=== PATIENT | female | born 1965 | race Caucasian/White ===

== ENCOUNTER 2017-05-16 12:44 | Observation (INO) ==
--- NOTE | 2017-05-16 12:58 | Emergency Department Note ---
Disposition Clinical Impression: Left arm weakness, Left leg weakness, Facial paresthesia Disposition: Admitted As Inpatient Condition: Good Referrals: Aldo Guardado MD [Primary Care Provider] - Forms: ED Satisfaction Letter Neuro HPI - General Chief Complaint: ED Neuro Symptoms/Deficit Stated Complaint: neuro sx Time Seen by Provider: 05/16/17 12:52 Source: patient Mode of arrival: private vehicle Limitations: physical limitation Nursing Notes Reviewed: Yes Vital Signs Reviewed: Yes - History of Present Illness HPI Narrative: 51-year-old female history of anxiety, prior history of hemiparesis who presents to the ER with a chief complaint of slurring words, left facial, left upper extremity and left lower extremity paresthesias and weakness. Patient states that "she was in bad shape yesterday". Reports that she had a headache and some palpitations then. She reports upon awakening this morning she noted slurring her words and was weak. She awoke with symptoms. Denies any head injury. Reports a prior history of similar presentation. States that she was seen by a neurologist and thought it might be secondary to her nerves. She does report that she was raising a child who is now going back into the custody of his drug mother. Reports she found out roughly 1 week ago. She has been taking her Ativan and it does help whenever she takes it. No other complaints. Onset of Symptoms Date: 05/16/17 Symptom Onset Unknown: Yes Location: speech, left face, dysarthria, left arm, left leg History of same: Yes Severity: moderate Quality: weakness, numbness Symptoms Improving: No Improves with: none Worsens with: none Context: present upon awakening On Anticoagulants: No Associated symptoms: Reports: headaches. Denies: chest pain, fever/chills, nausea/vomiting Treatments Prior to Arrival: none - Related Data Home Medications: Home Medications Medication Instructions Recorded Confirmed ALPRAZolam [Xanax 1 MG Tablet] 1 mg PO TID PRN 05/16/17 05/16/17 Loratadine [Claritin] 10 mg PO DAILY PRN 05/16/17 05/16/17 Melatonin 10 mg PO HS PRN 05/16/17 05/16/17 Multivitamin [One Daily 1 each PO DAILY 05/16/17 05/16/17 Multivitamin] Thyroid,Pork [Brush Cutter Thyroid] 15 mg PO DAILY 03/06/18 Allergies/Adverse Reactions: Allergies Allergy/AdvReac Type Severity Reaction Status Date / Time morphine Allergy Rash Verified 02/13/17 10:12 Sulfa (Sulfonamide Allergy Abdominal Verified 02/13/17 10:12 Antibiotics) Pain codeine AdvReac Nausea Verified 02/13/17 10:12 Isothipendyl AdvReac Itching Verified 02/13/17 10:12 All systems ED: reviewed and negative except as stated. Constitutional: Denies: fever Cardiovascular: Reports: palpitations. Denies: chest pain Respiratory: Denies: cough, dyspnea Gastrointestinal: Denies: abdominal pain, nausea, vomiting Neurological: Reports: headache, weakness, paresthesias Psychiatric: Reports: anxiety Past Medical History - Past Medical History Attestation: Yes The following information was validated with the patient. Source: patient Medical history: Reports: other Surgical history: Reports: hysterectomy, other Psychiatric history: Reports: anxiety - Social History Smoking Status: Current every day smoker Smokeless Tobacco Status: No Alcohol use: Reports: none Drug use: Reports: none Physical Exam - General Limitations: physical limitation General appearance: alert, in no apparent distress - Head Head exam: atraumatic, normocephalic, normal inspection - Eye Eye exam: Present: normal appearance, PERRL, EOMI - ENT ENT exam: normal exam - Neck Neck exam: Present: normal inspection, full ROM - Chest Chest inspection: Present: normal inspection, symmetric chest wall rise - Respiratory Respiratory exam: Present: normal lung sounds bilaterally - Cardiovascular Cardiovascular exam: Present: regular rate, normal rhythm, normal heart sounds - Abdominal Exam Abdominal exam: Present: soft, Non-Tender. Absent: tenderness - Extremities Exam Extremities exam: Present: normal inspection, full ROM - Expanded Upper Extremity Exam Shoulder exam: Present: normal inspection, full ROM Arm exam: Present: normal inspection, full ROM Elbow exam: Present: normal inspection, full ROM Forearm/Wrist exam: Present: normal inspection, full ROM Hand exam: Present: normal inspection, full ROM Vascular exam: Normal: radial pulse - Expanded Lower Extremity Exam Hip/Pelvis exam: Present: normal inspection, full ROM Upper leg exam: Present: normal inspection, full ROM Knee exam: Present: normal inspection, full ROM Lower leg exam: Present: normal inspection, full ROM Ankle exam: Present: normal inspection, full ROM Foot/toe exam: Present: normal inspection, full ROM - Neurological Exam Neurological exam: Present: alert, oriented X3 - Expanded Neurological Exam Patient oriented to: Present: person, place, time Speech: Present: fluid speech Cranial nerves: EOM function (II, III, IV, ): Normal, facial sensation (V): Normal, facial palsy (VII): Abnormal Left, spinal accessory function (XI): Normal, tongue deviation (XII): Normal Cerebellar function: finger to nose: Normal, heel to torres: Normal Motor strength - LUE: 4/5 Motor strength - RUE: 5/5 Motor strength - LLE: 4/5 Motor strength - RLE: 5/5 Upper motor neuron exam: jose neglect: Absent bilaterally, pronator drift: Absent bilaterally Sensory exam upper extremity: light touch: Abnormal Left Sensory exam lower extremity: light touch: Abnormal Left Coma Scale Eye Opening: Spontaneous Coma Scale Motor Response: Obeys Commands Coma Scale Verbal Response: Oriented Coma Scale Total: 15 - Skin Skin exam: Present: warm, dry Course Course Narrative: Patient seen and examined. I reviewed her prior evaluations with presentations of hemiparesis. Evaluated inpatient in 2016 with neurology consultation with brain MRI without acute infarct with evidence of questionable demyelination versus postinflammatory changes. Does report recent stress in her life. Suspect likely conversion disorder. She has weakness of the left upper extremity and left lower extremity as well as paresthesias over the affected extremities. We will pursue a CT scan of her head, EKG, labs as well as a dose of Ativan here. - Reevaluation(s) Reevaluation #1: Patient requiring multiple IV sticks. She continues to complain of numbness in her left upper and lower extremities. Her other symptoms do not follow a neurologic distribution. Reevaluation #2: Discussed results of imaging and labs with the patient. Reports her symptoms have improved some and now she just feeling numb from her elbow and knee distal. We will have her ambulate here prior to attempting to discharge if she is comfortable with this. Reevaluation #3: Patient ambulated here dragging her left leg. She will have to be admitted for evaluation. Vital Signs Temperature 97.8 F 05/16/17 12:47 Pulse Rate 83 05/16/17 12:47 Respiratory Rate 20 05/16/17 12:47 Blood Pressure 156/100 05/16/17 12:47 O2 Sat by Pulse Oximetry 97 05/16/17 12:47 Temperature 97.8 F 05/16/17 12:47 Pulse Rate 75 05/16/17 15:37 Respiratory Rate 18 05/16/17 15:37 Blood Pressure 146/81 05/16/17 15:37 O2 Sat by Pulse Oximetry 96 05/16/17 15:37 Oxygen Delivery Oxygen Delivery Room Air Neuro Symptoms/Deficit - MDM Narrative Medical decision making narrative: 51-year-old female presents to the awoke with symptoms this morning. She has a prior history of hemiparesis of unknown etiology. Has been under increased stress lately. No head injury. Reports a prior history of stroke however her previous MRI showed no infarct. There is questionable demyelination on her prior MRI. She has weakness of the left upper and lower extremity as well as paresthesias. CT without evidence of acute abnormality. Labs and EKG reviewed. Patient ambulated here without difficulty while dragging her left leg. Although suspected conversion disorder or acute anxiety she requires further evaluation inpatient for neurologic monitoring. - Lab Data Lab results reviewed: Yes I reviewed the patient's lab results. Result diagrams: 05/16/17 14:31 05/16/17 14:31 Lab Results 05/16/17 05/16/17 05/16/17 Range/Units 12:48 14:31 14:31 WBC 10.4 (4.3-11.1) K/mcL RBC 5.13 H (3.82-4.97) M/mcL Hgb 14.5 (11.5-15.4) g/dL Hct 43.8 (35.3-44.9) % MCV 85.4 (83.0-100.0) fL MCH 28.3 (28.0-33.3) pg MCHC 33.1 (31.6-35.5) g/dL RDW 13.2 (11.5-14.5) % Plt Count 331 (140-400) K/mcL MPV 10.0 (9.4-12.4) fL Immature Gran % 0.8 (0-4) % Seg Neutrophils % 51.0 % Lymphocytes % 40.0 % Monocytes % 6.3 % Eosinophils % 0.8 % Basophils % 1.1 % Neutrophils # 5.3 (1.6-8.9) K/mcL Lymphocytes # 4.2 (0.6-4.6) K/mcL Monocytes # 0.7 (0.0-1.3) K/mcL Eosinophils # 0.1 (0.0-0.6) K/mcL Basophils # 0.1 (0.0-0.2) K/mcL Sodium Cancelled Potassium Cancelled Chloride Cancelled Carbon Dioxide Cancelled BUN Cancelled Creatinine Cancelled Est GFR ( Amer) Cancelled Est GFR (Non-Af Amer) Cancelled BUN/Creatinine Ratio Cancelled Glucose Cancelled POC Glucose 124 H (58-89) Calculated Osmolality Cancelled Calcium Cancelled Troponin I < 0.03 (< 0.04) ng/mL Urine Color (Yellow) Urine Clarity (Clear) Urine pH (5.0-8.0) pH Units Ur Specific [place] (1.010-1.025) Urine Protein (Neg-Trace) mg/dL Urine Glucose (UA) (Normal) mg/dL Urine Ketones (Negative) mg/dL Urine Blood (Negative) Urine Nitrite (Negative) Urine Bilirubin (Negative) Urine Urobilinogen (Normal) mg/dL Ur Leukocyte Esterase (Negative) Urine Microscopic RBC (0-3) per hpf Urine Microscopic WBC (0-3) per hpf Ur Squamous Epith Cells (None-Few) per lpf Urine Bacteria (None-Few) per hpf Hyaline Casts (None-Few) per lpf Ur Culture Indicated? (NO) Specimen Rejected 05/16/17 05/16/17 Range/Units 15:13 15:29 WBC (4.3-11.1) K/mcL RBC (3.82-4.97) M/mcL Hgb (11.5-15.4) g/dL Hct (35.3-44.9) % MCV (83.0-100.0) fL MCH (28.0-33.3) pg MCHC (31.6-35.5) g/dL RDW (11.5-14.5) % Plt Count (140-400) K/mcL MPV (9.4-12.4) fL Immature Gran % (0-4) % Seg Neutrophils % % Lymphocytes % % Monocytes % % Eosinophils % % Basophils % % Neutrophils # (1.6-8.9) K/mcL Lymphocytes # (0.6-4.6) K/mcL Monocytes # (0.0-1.3) K/mcL Eosinophils # (0.0-0.6) K/mcL Basophils # (0.0-0.2) K/mcL Sodium Potassium Chloride Carbon Dioxide BUN Creatinine Est GFR ( Amer) Est GFR (Non-Af Amer) BUN/Creatinine Ratio Glucose POC Glucose (58-89) Calculated Osmolality Calcium Troponin I (< 0.04) ng/mL Urine Color Yellow (Yellow) Urine Clarity Clear (Clear) Urine pH 6.0 (5.0-8.0) pH Units Ur Specific [place] 1.013 (1.010-1.025) Urine Protein Negative (Neg-Trace) mg/dL Urine Glucose (UA) Normal (Normal) mg/dL Urine Ketones Negative (Negative) mg/dL Urine Blood Negative (Negative) Urine Nitrite Negative (Negative) Urine Bilirubin Negative (Negative) Urine Urobilinogen Normal (Normal) mg/dL Ur Leukocyte Esterase Small H (Negative) Urine Microscopic RBC 3-5 H (0-3) per hpf Urine Microscopic WBC 3-5 H (0-3) per hpf Ur Squamous Epith Cells Many H (None-Few) per lpf Urine Bacteria None Seen (None-Few) per hpf Hyaline Casts None Seen (None-Few) per lpf Ur Culture Indicated? NO. (NO) Specimen Rejected Hemolyzed - Radiology Data Radiology results reviewed: Yes I reviewed the patient's radiology results. Chest X-Ray 05/16/17 13:13 IMPRESSION: No acute process. D/ / 05/16/2017 13:57:02 Marck Gustafson MD / [facility] Interpreting Provider: Marck Gustafson MD Head CT 05/16/17 13:13 IMPRESSION: No acute intracranial abnormality. D/ / Beny Amaro MD / Beny Amaro MD Interpreting Provider: Beny Amaro MD - EKG Data EKG attestation: Yes I reviewed and interpreted this EKG. EKG results narrative: EKG demonstrates sinus bradycardia with a rate of 50 bpm. Normal axis. Normal intervals. Normal R-wave progression. No gross ST elevations or depressions. No acute ischemic findings. No significant changes from previous EKG dated 02/10. NIH Stroke Scale - Level of Consciousness LOC: Alert - LOC Questions LOC Questions: Answers both correctly - LOC Commands LOC Commands: Performs both correctly - Best Gaze Best Gaze: Normal - Visual Visual: Partial hemianopia - Facial Palsy Facial Palsy: Minor asymmetry on smiling, flattened nasolabial fold - Motor Arms Motor Arm-Left: No drift for 10 seconds Motor Arm-Right: No drift for 10 seconds - Motor Legs Motor Leg-Left: No drift for 5 seconds Motor Leg-Right: No drift for 5 seconds - Limb Ataxia Limb Ataxia: Present in ONE limb - Sensory Sensory: Mild to moderate loss, "not as sharp" - Best Language Best Language: No aphasia - Dysarthria Dysarthria: Mild, slurs some words - Extinction and Inattention Extinction and Inattention: Normal - NIHSS Total Score NIHSS Total Score: 5 TPA Checklist - LKW: 3-4.5 hrs Add. Warnings/Precautions Patient/family understanding: The patient/family members have been counseled and understood the risk, benefit , and alternatives of treatment. Ron - Ron Situation: Demographics, MOA Background: Presenting Complaint, Relevant PMH, Meds, & Allergies Assessment: Course and respsone to treatment, Exam Concerns, Patient/Family Expectation, Pertinant Lab Results Recommendation: Barrier(s) to disposition, Recommendation based on pending studies, treatments, or consults S.[email or web address].Francesco Report Given to: Dr. Andie Velasquez Repor Time: 17:47 Attestation Statement - Attestation Attestation: I examined this patient and my medical decision-making was reviewed with the Resident Physician. I agree with the documented findings, disposition and treatment plan as described except to the extent set forth below. [id number] time provided Patient arrives with neurologic symptoms. She went to bed without symptoms other than a headache and intermittent panic attacks throughout the day at 21: 30 yesterday night. She awoke at 7 AM which is 6 hours prior to arrival with neurologic symptoms include left-sided hemiparesis 16:30: Patient symptomatically improved and resolved. Upon presentation her symptoms seemed to be confounded by some anxiety symptoms. I am not completely convinced that her symptoms represent an acute ischemic event. We will attempt a trial of ambulation and if she has no further symptoms we will consider discharging her home
[2017-05-16] MEDS ORDERED: *HR* LORazepam 2 MG/ML VIAL IVP ONE (13:15)
[2017-05-16 14:46] LABS: Basophils # 0.1 K/mcL (0.0-0.2); Basophils % 1.1 %; Eosinophils # 0.1 K/mcL (0.0-0.6); Eosinophils % 0.8 %; Hematocrit 43.8 % (35.3-44.9); Hemoglobin 14.5 g/dL (11.5-15.4); Immature Granulocytes % 0.8 % (0-4); Lymphocytes # 4.2 K/mcL (0.6-4.6); Mean Corpuscular HGB Conc 33.1 g/dL (31.6-35.5); Mean Corpuscular Hemoglobin 28.3 pg (28.0-33.3); Mean Corpuscular Volume 85.4 fL (83.0-100.0); Monocytes # 0.7 K/mcL (0.0-1.3); Monocytes % 6.3 %; Neutrophils # 5.3 K/mcL (1.6-8.9); Platelet Count 331 K/mcL (140-400); Red Blood Count 5.13 M/mcL (3.82-4.97); Red Cell Distribution Width 13.2 % (11.5-14.5)
[2017-05-16] MEDS ORDERED: Aspirin 325 MG TABLET PO ONE (15:00)
[2017-05-16 15:45] LABS: Bilirubin,Urine Negative (Negative); Blood,Urine Negative (Negative); Clarity,Urine Clear (Clear); Color,Urine Yellow (Yellow); Glucose,Urine (UA) Normal (Normal); Ketones,Urine Negative (Negative); Leukocyte Esterase,Urine Small (Negative); Nitrite,Urine Negative (Negative); Protein,Urine Negative (Neg-Trace); Specific Gravity,Urine 1.013 (1.010-1.025); Urobilinogen,Urine Normal (Normal)
[2017-05-16 15:46] LABS: Bacteria,Urine None Seen per hpf (None-Few); Hyaline Casts,Urine None Seen per lpf (None-Few); Squamous Epithelial Cell,Urine Many per lpf (None-Few)
[2017-05-16 17:59] LABS: BUN/Creatinine Ratio 14 (6-26); Blood Urea Nitrogen 10 mg/dL (6-20); Calcium 9.7 mg/dL (8.6-10.3); Carbon Dioxide 15 mEq/L (23-29); Chloride 115 mEq/L (98-107); Glucose 96 mg/dL (70-105); Osmolality,Calculated 297 (280-300); Potassium 4.5 mEq/L (3.5-5.1); Sodium 144 mEq/L (136-145); eGFR For African Americans > 60 (> 60); eGFR For Non-African Americans > 60 (> 60)
[2017-05-16] MEDS ORDERED: Melatonin 3 MG TABLET PO PRN (18:16)
[2017-05-16] MEDS ORDERED: Loratadine 10 MG TABLET PO PRN (18:16)
[2017-05-16] MEDS ORDERED: Acetaminophen 325 MG TABLET PO PRN (18:17)
[2017-05-16] MEDS ORDERED: Naloxone 0.4 MG/ML INJ IVP PRN (18:17)
--- NOTE | 2017-05-16 18:26 | Internal Med History&Physical ---
Date of Encounter: 05/16/17 Time of Encounter: 18:26 Assessment and Plan (1) Acute CVA (cerebrovascular accident) Current visit: Yes Status: Acute Patient with acute onset left upper and lower extremity weakness, mild facial droop. Time of onset was before 7 AM this morning 12 hours ago and therefore she is outside the therapeutic window for tPA. We will admit the patient. Obtain MRA of the head, MRI without contrast of the brain, carotid Dopplers, echocardiogram. Check lipid profile. Consult neurology. Neuro checks per protocol. Nothing by mouth. Speech and swallow evaluation. (2) Tobacco abuse Current visit: Yes Status: Acute I advised smoking cessation. (3) DVT prophylaxis Current visit: Yes Status: Acute Subcutaneous heparin. (4) Left hemiparesis Current visit: No Status: Acute Could be secondary to TIA or CVA. Consult neurology. Obtain MRI of the brain. (5) HTN (hypertension) Current visit: No Status: Chronic Allow for permissive hypertension. Qualifiers: Hypertension type: essential hypertension Qualified Code(s): I10 - Essential (primary) hypertension Internal Medicine - H&P: HPI Chief complaint: Left-sided weakness Admitted From: Emergency Dept Plans for Post Hospital Care: Home History of present illness: Ms. Collier is a 51 year old female with past medical history significant for Crohn's disease who presents to the hospital for evaluation of weakness. She says that she woke up this morning and noticed left lower extremity weakness when trying to walk. Soon thereafter she also noticed left arm weakness. She tried to do stretches and yoga however improved. She also reported some headache, no vision changes. Friend visited her late morning and told her that she had a facial droop and slurred speech and she was directed to come to the hospital. She presented to the emergency department early afternoon where she was found to have left upper lower extremity weakness. She was outside the therapeutic window for TPA. CT of the head was negative. She was referred for admission. Review of systems: Positive for migraine headaches otherwise negative Family history: Positive for diabetes in the patient's mother Social history: She states that she smokes to 2 cigarettes a day, she is trying to quit. Denies alcohol and drug use. Past Med Surg Social Fam HX - Past Medical History Medical history: other Psychiatric history: anxiety - Past Surgical History Surgical History: hysterectomy, other - Social History Smoking Status: Current every day smoker Smokeless Tobacco Status: No Alcohol use: none Drug use: none Internal Medicine - H&P: Meds ALPRAZolam [Xanax 1 MG Tablet] 1 mg PO TID PRN 05/16/17 [History] Loratadine [Claritin] 10 mg PO DAILY PRN 05/16/17 [History] Melatonin 10 mg PO HS PRN 05/16/17 [History] Multivitamin [One Daily Multivitamin] 1 each PO DAILY 05/16/17 [History] Thyroid,Pork [Assistant Professor [employer] Thyroid] 15 mg PO DAILY 05/16/17 [History] 3 Allergy/AdvReac Type Severity Reaction Status Date / Time morphine Allergy Rash Verified 02/13/17 10:12 Sulfa (Sulfonamide Allergy Abdominal Verified 02/13/17 10:12 Antibiotics) Pain codeine AdvReac Nausea Verified 02/13/17 10:12 Isothipendyl AdvReac Itching Verified 02/13/17 10:12 All Systems PM: A 10-system review of systems was performed and is negative for pertinent findings except as documented above in the HPI. - Constitutional Vitals: Temp Pulse Resp BP Pulse Ox 97.8 F 69 20 119/95 97 05/16/17 12:47 05/16/17 18:02 05/16/17 18:02 05/16/17 18:02 05/16/17 18:02 General appearance: Present: A&O X 3, no acute distress, answers questions appropriately - Respiratory Respiratory exam: Present: CTAB. Absent: accessory muscle use, rales, rhonchi, wheezes - Cardiovascular Cardiovascular exam: Present: RRR, +S1, +S2. Absent: diastolic murmur, gallop, rubs, systolic murmur - GI/Abdominal GI/Abdominal exam: Present: normal bowel sounds, soft, no peritoneal signs. Absent: distended, tenderness - Extremities Exam Extremities exam: Present: warm, radial pulses palpable and symmetrical. Absent : calf tenderness, cyanotic, pedal edema - Neurological Exam Neurological exam: Present: CN II-XII intact, motor sensory deficit (Decreased strength of 4/5 in upper and lower extremity, 5/5 and right upper and lower extremities.), oriented X3, pronater drift (Subtle left upper extremity pronator drift). Absent: no focal deficits, facial droop, speech deficit Additional comments: Mild hyperreflexia of the left patellar. No clonus. - Skin Skin exam: Present: dry, intact Internal Med - H&P Results - Labs CBC & Chem 7: 05/16/17 14:31 05/16/17 15:41 Labs: Short CBC 05/16/17 Range/Units 14:31 WBC 10.4 (4.3-11.1) K/mcL Hgb 14.5 (11.5-15.4) g/dL Hct 43.8 (35.3-44.9) % Plt Count 331 (140-400) K/mcL Neutrophils # 5.3 (1.6-8.9) K/mcL BMP 05/16/17 05/16/17 14:31 15:41 Sodium Cancelled 144 Potassium Cancelled 4.5 Chloride Cancelled 115 H Carbon Dioxide Cancelled 15 L BUN Cancelled 10 Creatinine Cancelled 0.71 Glucose Cancelled 96 Calcium Cancelled 9.7 Cardiac Enzymes 05/16/17 Range/Units 14:31 Troponin I < 0.03 (< 0.04) ng/mL Urine 05/16/17 Range/Units 15:29 Urine Color Yellow (Yellow) Urine Clarity Clear (Clear) Urine pH 6.0 (5.0-8.0) pH Units Ur Specific [place] 1.013 (1.010-1.025) Urine Protein Negative (Neg-Trace) mg/dL Urine Glucose (UA) Normal (Normal) mg/dL - EKG Data -: EKG Interpreted by Myself EKG shows normal: sinus rhythm, intervals, QRS complexes, ST-T waves - Impressions ITS Impressions Chest X-Ray 05/16/17 13:13 IMPRESSION: No acute process. D/ / 05/16/2017 13:57:02 Marck Gustafson MD / [facility] Interpreting Provider: Marck Gustafson MD Head CT 05/16/17 13:13 IMPRESSION: No acute intracranial abnormality. D/ / Beny Amaro MD / Beny Amaro MD Interpreting Provider: Beny Amaro MD
[2017-05-16] MEDS: 0.9 % Sodium Chloride 1,000 ML IVC SCH (21:06)
[2017-05-16] MEDS: ALPRAZolam 1 MG TABLET PO PRN (22:49)
[2017-05-17 06:36] LABS: Basophils # 0.1 K/mcL (0.0-0.2); Eosinophils # 0.2 K/mcL (0.0-0.6); Eosinophils % 2.5 %; Hematocrit 36.9 % (35.3-44.9); Immature Granulocytes % 0.2 % (0-4); Lymphocytes # 3.6 K/mcL (0.6-4.6); Lymphocytes % 43.9 %; Mean Corpuscular HGB Conc 32.8 g/dL (31.6-35.5); Mean Corpuscular Hemoglobin 28.1 pg (28.0-33.3); Mean Corpuscular Volume 85.6 fL (83.0-100.0); Mean Platelet Volume 10.6 fL (9.4-12.4); Monocytes # 0.6 K/mcL (0.0-1.3); Monocytes % 7.4 %; Neutrophils # 3.6 K/mcL (1.6-8.9); Platelet Count 305 K/mcL (140-400); Red Blood Count 4.31 M/mcL (3.82-4.97); Red Cell Distribution Width 13.2 % (11.5-14.5)
[2017-05-17 06:37] LABS: Hemoglobin 12.1 g/dL (11.5-15.4)
[2017-05-17 06:56] LABS: BUN/Creatinine Ratio 15 (6-26); Blood Urea Nitrogen 12 mg/dL (6-20); Calcium 9.1 mg/dL (8.6-10.3); Carbon Dioxide 20 mEq/L (23-29); Chloride 115 mEq/L (98-107); Chol/HDL Ratio 5.6 (0-4.9); Cholesterol 180 mg/dL (< 200); Glucose 88 mg/dL (70-105); HDL Cholesterol 32 mg/dL (40-59); LDL Cholesterol,Calculated 107 mg/dL (0-99); Magnesium 1.9 mg/dL (1.6-2.6); Osmolality,Calculated 291 (280-300); Potassium 4.2 mEq/L (3.5-5.1); Sodium 141 mEq/L (136-145); Triglycerides 203 mg/dL (< 150); eGFR For African Americans > 60 (> 60); eGFR For Non-African Americans > 60 (> 60)
[2017-05-17] MEDS: 0.9 % Sodium Chloride 1,000 ML IVC SCH (07:37)
--- NOTE | 2017-05-17 08:45 | Neurology - Consult Note ---
<Jaxson Magnaa - Last Filed: 05/17/17 15:23> Date of Encounter: 05/17/17 Time of Encounter: 08:45 Assessment and Plan (1) Weakness of left side of body Current Visit: Yes Status: Acute 51-year-old female presented with left-sided facial drooping, left extremity weakness, CT, MRI of the brain negative for acute findings of stroke. No previous findings of stroke either. Patient has been seen in the past for similar symptoms that resolved on their own. Thorough discussion with the patient demonstrates that her symptoms occur during stressful events currently related to a foster child that may be returning to their parents. During our discussion her symptoms of left facial droop very and presentation. - Of notes each time she has admitted to the hospital with left-sided weakness and facial droop there is a noticeable metabolic acidosis which is also noted on her current laboratory work. Patient denies ingestion of any alcohol, drugs or chemicals. Review of her most recent hormonal lab work was evaluated and correlate with a postmenopausal female for which she is following with [facility]. Differential diagnosis includes psychogenic versus demyelinating versus metabolic disorders. - There is high suspicion for a psychologic component is underlining factor and her current symptoms do not correlate with acute stroke. High suspicion for a conversion disorder. She was evaluated by physical therapy for recommending inpatient rehabilitation. Continue recommendation for follow-up with her psychiatrist in the outpatient setting. History of Present Illness HPI: Ms. Collier is a 51 year old female with PMH significant for Crohn disease, Asthma, COPD, depression/anxiety history of left sided weakness who presented with acute onset of left sided weakness and paresthesia. She has had several episodes of similar presentation in the past and last admitted and evaluated by neurology in 2016 at which time no finding of stroke were identified. Ms. Collier states that she woke up yesterday morning felt a little funny but did not notice anything significant except difficulty with walking. She did not think this was too far from her baseline which she says from previous episodes of weakness she has occasional tripping over her left foot and gait problems. Her friend came over to visit her in the morning and noticed that she had left- sided facial drooping and left-sided weakness and was concerned requesting that she be evaluated in the emergency department. She states that she does not have any headaches, change in vision, only mental fogginess that comes and goes that she thinks is related to her hormones. She denies any syncopal, presyncopal, chest pain, palpitations or shortness of breath episodes. She feels that her weakness is slightly improved from the day prior but is not back to her baseline currently. She denies any known history of stroke, clotting disorders, head traumas, seizure activity. Past Med Surg Social Fam HX - Past Medical History Medical history: migraine, myocardial infarction Psychiatric history: anxiety - Past Surgical History Surgical History: hysterectomy, other - Social History Smoking Status: Current every day smoker Packs per day: .01 Smokeless Tobacco Status: No Alcohol use: none Drug use: none - Family History Mother Hx Family Endocrine Disorder: Yes (DM) Medications and Allergies ALPRAZolam [Xanax 1 MG Tablet] 1 mg PO TID PRN 05/16/17 [History] Loratadine [Claritin] 10 mg PO DAILY PRN 05/16/17 [History] Melatonin 10 mg PO HS PRN 05/16/17 [History] Multivitamin [One Daily Multivitamin] 1 each PO DAILY 05/16/17 [History] Thyroid,Pork [Special Technical Operations Officer Thyroid] 15 mg PO DAILY 05/16/17 [History] 3 Allergy/AdvReac Type Severity Reaction Status Date / Time morphine Allergy Rash Verified 02/13/17 10:12 Sulfa (Sulfonamide Allergy Abdominal Verified 02/13/17 10:12 Antibiotics) Pain codeine AdvReac Nausea Verified 02/13/17 10:12 Isothipendyl AdvReac Itching Verified 02/13/17 10:12 All Systems: The remainder of the systems were reviewed and are negative - Constitutional Constitutional ROS IM: weakness, no fatigue, no fever(s), no frequent falls, no headache(s) - Nose, Mouth, Throat Nose, mouth and throat: no disequilibrium, no dizziness, no dysphagia, no sore throat - Cardiovascular Cardiovascular ROS IM: no chest pain, no chest pain at rest, no irregular heart rhythm, no rapid heart rate, no slow heart rate, no syncope - Respiratory Respiratory IM: no dyspnea - Gastrointestinal Gastrointestinal: no constipation, no diarrhea, no nausea, no vomiting - Genitourinary Genitourinary ROS: no urinary frequency, no urinary hesitancy, no urinary incontinence, no urinary urgency - Musculoskeletal Musculoskeletal ROS IM: limited range of motion (Left-sided), muscle weakness ( Left-sided), numbness (Left-sided) - Neurological Neurological ROS: weakness (Left-sided), no disequilibrium, no dizziness - Psychiatric Psychiatric general PM: anxiety, depression Physical Examination - Vital Signs Vital Signs: Initial Vital Signs Temp Pulse Resp BP Pulse Ox 97.8 F 83 20 156/100 97 05/16/17 12:47 05/16/17 12:47 05/16/17 12:47 05/16/17 12:47 05/16/17 12:47 - Constitutional General appearance: comfortable - Neurologic Sensorimotor examination: intact Motor examination - right side: 5/5: deltoids, biceps, triceps, wrist flexion, wrist extension, worship leader, hip flexors, tibialis Anterior, quadriceps, toe extension (EHL), plantarflexion Motor examination - left side: 3/5: toe extension (EHL), 4/5: worship leader, 5/5: deltoids, biceps, triceps, wrist flexion, wrist extension, hip flexors, quadriceps, tibialis Anterior, plantarflexion Detailed sensory examination: intact (Grossly intact) Reflex and gait examination: other (Abnormal gait demonstrating favoring of the left side and limping on the left side) Reflexes: Biceps: 2+, Triceps: 2+, Brachioradialis: 2+, Patella: 2+, Achilles: 2 + Mental Status Examination: awake, alert, oriented to person, oriented to place, oriented to time, follows commands appropriately, answers questions appropriately, no agnosia, no aphasia, no aproxia, lucid Cranial nerve examination: PERRL, EOMI, visual napier intact, corneal reflexes brisk symmetrically, sensory to face intact, mastication intact, no facial asymmetry is present, no dysarthria, hearing is intact symmetrically, soft palate elevates bilaterally upon phonation, gag reflex intact, flexes SCM and trapezius muscles symmetrically with full power, tongue protrudes midline, no atrophy or facial fasiculations present Cerebellar examination: no dysmetria, performs finger to nose and heel to torres symmetrically without ataxia Results - Laboratory Findings CBC and BMP: 05/17/17 05:35 05/17/17 05:35 Abnormal lab findings: Abnormal lab results Chloride 115 mEq/L (98-107) H 05/17/17 05:35 Carbon Dioxide 20 mEq/L (23-29) L 05/17/17 05:35 POC Glucose 124 (58-89) H 05/16/17 12:48 Triglycerides 203 mg/dL (< 150) H 05/17/17 05:35 LDL Cholesterol, Calc 107 mg/dL (0-99) H 05/17/17 05:35 VLDL Cholesterol, Calc 41 mg/dL (< 31) H 05/17/17 05:35 HDL Cholesterol 32 mg/dL (40-59) L 05/17/17 05:35 Cholesterol/HDL Ratio 5.6 (0-4.9) H 05/17/17 05:35 Ur Leukocyte Esterase Small (Negative) H 05/16/17 15:29 Urine Microscopic RBC 3-5 per hpf (0-3) H 05/16/17 15:29 Urine Microscopic WBC 3-5 per hpf (0-3) H 05/16/17 15:29 Ur Squamous Epith Cells Many per lpf (None-Few) H 05/16/17 15:29 Consult Discharge Plan - Plan Referrals: Aldo Guardado MD [Primary Care Provider] - 05/24/17 2:15 pm <Valentin Pérez I - Last Filed: 05/17/17 16:28> Date of Encounter: 05/17/17 Assessment and Plan (1) Weakness of left side of body Current Visit: Yes Status: Acute Pt was seen and examined, my medical decision was reviewed with the Resident Physician, I agree with the documented findings, disposition and treatment plas as described except to the extent set forth below a. This patient who apparently had weakness of the left side of the body that seems to resolve without any acute finding on MRI to explain his symptoms she did have a previous episodes in the past and was diagnosed with a stroke. That will be very unusual to have an stroke without any residual finding on MRI I have reviewed her MRI images she did have some nonspecific white matter changes and area white matter changes perhaps could be demyelinating, lateral to the left lateral ventricle which was present on previous imaging in 2010 and has not changed since then. Even if it is a demyelinating her symptoms cannot be explained on the basis of that abnormality. Though TIA and strokes remains in the differential but the description and findings does not seems to be typical off it. Other possibility would be of a demyelinating disease that could be worked out as an outpatient and is still should be considered in the differential. But at the same time underlying psychological component need to be excluded as well. I would strongly recommend getting a psychiatric evaluation could be done as an outpatient in the meantime she would continue on a baby aspirin that she has been taking. She had been evaluated by neurologist from [facility] in the past suggest follow-up appointment with them at the discharge Valentin Pérez MD History of Present Illness HPI: Ms. Collier is a 51 year old female All Systems: The remainder of the systems were reviewed and are negative Physical Examination - Vital Signs Vital Signs: Initial Vital Signs Temp Pulse Resp BP Pulse Ox 97.8 F 83 20 156/100 97 05/16/17 12:47 05/16/17 12:47 05/16/17 12:47 05/16/17 12:47 05/16/17 12:47 Results - Laboratory Findings CBC and BMP: 05/17/17 05:35 05/17/17 05:35 Abnormal lab findings: Abnormal lab results Chloride 115 mEq/L (98-107) H 05/17/17 05:35 Carbon Dioxide 20 mEq/L (23-29) L 05/17/17 05:35 POC Glucose 124 (58-89) H 05/16/17 12:48 Triglycerides 203 mg/dL (< 150) H 05/17/17 05:35 LDL Cholesterol, Calc 107 mg/dL (0-99) H 05/17/17 05:35 VLDL Cholesterol, Calc 41 mg/dL (< 31) H 05/17/17 05:35 HDL Cholesterol 32 mg/dL (40-59) L 05/17/17 05:35 Cholesterol/HDL Ratio 5.6 (0-4.9) H 05/17/17 05:35 Ur Leukocyte Esterase Small (Negative) H 05/16/17 15:29 Urine Microscopic RBC 3-5 per hpf (0-3) H 05/16/17 15:29 Urine Microscopic WBC 3-5 per hpf (0-3) H 05/16/17 15:29 Ur Squamous Epith Cells Many per lpf (None-Few) H 05/16/17 15:29
[2017-05-17] MEDS ORDERED: Aspirin 81 MG TAB.CHEW PO SCH (09:00)
[2017-05-17] MEDS: ALPRAZolam 1 MG TABLET PO PRN (12:33)
[2017-05-17 15:12] VITALS: BP 104/68
--- NOTE | 2017-05-17 16:48 | Electrocardiograph Report ---
[address] [place] [address] Test Date: 2017-05-16 Pat Name: Emelyn Collier Department: 104 Room: 3B Gender: F [employer] Programmer: : [id number] Requested By: Alex Rae Order Number: [id number] Reading MD: Farshad Wilhelm MD Measurements Intervals [place] Rate: 58 P: 69 UT: 145 QRS: 68 QRSD: 81 T: 55 QT: 417 QTc: 414 Interpretive Statements SINUS BRADYCARDIA Electronically Signed On 05-17-2017 16:46:44 EST by Farshad Wilhelm MD
--- NOTE | 2017-05-17 17:45 | Discharge Summary ---
- NOTES TO OUTPATIENT PROVIDER Notes to Outpatient Provider: should f/u with PCP regarding stress. f/u with neurologist in [place]. Recommend follow-up with outpatient psychiatric service Date of Encounter: 05/17/17 Time of Encounter: 17:43 - Discharge Diagnosis (1) Acute CVA (cerebrovascular accident) Priority: Primary Status: Resolved Comments: Discussed with neurology service. They felt she did not have a stroke or TIA A and this may be a psychosomatic in nature such as a conversion disorder. CT of the head and MRI were negative for stroke MRA of the brain showed no acute infarcts. No flow limiting stenosis or branch occlusion detected within the head. (2) Tobacco abuse Priority: Primary Status: Acute Comments: Cessation advised (3) Left hemiparesis Priority: Primary Status: Resolved Comments: Resolved (4) HTN (hypertension) Priority: Primary Status: Chronic Comments: Blood pressure well controlled Qualifiers: Hypertension type: essential hypertension Qualified Code(s): I10 - Essential (primary) hypertension Hospital course: Ms. Collier is a 51 year old female with a past medical history significant for Crohn's disease who presented to the hospital for evaluation of weakness. She stated she woke with left lower extremity weakness and trying to walk. She also notes some left arm weakness. She had a headache but no vision changes. [facility] advised her to come to the hospital. She was found to have left upper extremity weakness on arrival. CT of the head was negative, MRI was negative for acute findings of stroke. According to neurology consult the patient has been seen in the past for similar symptoms that resolved on their own. The patient is under a great deal of stress related to her foster child that is returning to his mother. There is a noticeable metabolic acidosis with her previous admissions when she presented with a left-sided weakness and facial droop as there is on this current lab work. She denied any alcohol Druker chemical use. Recent hormonal lab work was reviewed and correlates with a postmenopausal female and she follows with [facility]. There is a high suspicion for psychologic component as the underlying factor in her current symptoms do not correlate with acute stroke per neurology's note. High suspicion for a conversion disorder. Neurology recommends follow-up with her psychiatrist in outpatient setting Discharge discussed with: patient, nurse, transportation sales consultant - Time Spent with Patient Total time spent providing and/or coordinating discharge services: Less than 30 minutes - Discharge Medications Home Medications: ALPRAZolam [Xanax 1 MG Tablet] 1 mg PO TID PRN 05/16/17 [History] Loratadine [Claritin] 10 mg PO DAILY PRN 05/16/17 [History] Melatonin 10 mg PO HS PRN 05/16/17 [History] Multivitamin [One Daily Multivitamin] 1 each PO DAILY 05/16/17 [History] Thyroid,Pork [Radiographer Angiogram Thyroid] 15 mg PO DAILY 05/16/17 [History] Allergies/Adverse Reactions: 3 Allergy/AdvReac Type Severity Reaction Status Date / Time morphine Allergy Rash Verified 02/13/17 10:12 Sulfa (Sulfonamide Allergy Abdominal Verified 02/13/17 10:12 Antibiotics) Pain codeine AdvReac Nausea Verified 02/13/17 10:12 Isothipendyl AdvReac Itching Verified 02/13/17 10:12 Date of admission: 05/16/17 20:03 Primary care physician: Aldo Guardado MD Discharging clinician: Tiffanie Lara Anticipated date of discharge: 05/17/17 - Constitutional Vitals: Temp Pulse Resp BP Pulse Ox 97.7 F 62 20 104/68 95 05/17/17 15:08 05/17/17 15:08 05/17/17 15:08 05/17/17 15:08 05/17/17 15:08 General appearance: Present: cooperative, A&O X 3, pleasant, answers questions appropriately - Head Head exam: Present: atraumatic, normocephalic - Eye Eye exam: Present: PERRL, conjuntiva pink, sclera anicteric Pupils: Present: PERRL - Neck Neck exam general surgery: Present: supple, trachea midline. Absent: lymphadenopathy - Respiratory Respiratory exam: Present: CTAB. Absent: accessory muscle use, rales, rhonchi, wheezes - Cardiovascular Cardiovascular exam: Present: RRR, +S1, +S2. Absent: diastolic murmur, gallop, rubs, systolic murmur - GI/Abdominal GI/Abdominal exam: Present: normal bowel sounds, soft, no peritoneal signs. Absent: distended, tenderness - Extremities Exam Extremities exam: Present: warm, radial pulses palpable and symmetrical. Absent : calf tenderness, cyanotic, pedal edema - Neurological Exam Neurological exam: Present: CN II-XII intact, oriented X3, no focal deficits, strengths equal and symetr throughout. Absent: pronater drift, facial droop, speech deficit - Skin Skin exam: Present: dry, intact, normal color, warm - Patient Status Disposition: Home, Self-Care Condition: Good Functional capacity at discharge: independent ambulation Overall status at discharge: patient is back to baseline - Discharge Instructions Follow Up With: Aldo Guardado MD [Primary Care Provider] - 05/24/17 2:15 pm - Diet and Activity Activity: resume usual activities as tolerated Diet: advance to your usual diet
== END 2017-05-17 18:15 | disposition home or self-care (01) ==
LOC: EMEROO 12:44 → 3BNU 12:44
PROVIDERS: ADMIT Internal Medicine; ATTEND Registered Nurse

== ENCOUNTER 2021-07-28 17:40 | Observation (INO) ==
[2021-07-28 19:23] LABS: Basophils # 0.1 K/mcL (0.0-0.2); Eosinophils # 0.1 K/mcL (0.0-0.6); Hematocrit 44.6 % (35.3-44.9); Hemoglobin 15.4 g/dL (11.5-15.4); Immature Granulocytes % 0.3 % (0-4); Lymphocytes # 3.4 K/mcL (0.6-4.6); Lymphocytes % 28.5 %; Mean Corpuscular HGB Conc 34.5 g/dL (31.6-35.5); Mean Corpuscular Hemoglobin 30.7 pg (28.0-33.3); Mean Platelet Volume 9.7 fL (9.4-12.4); Monocytes # 1.3 K/mcL (0.0-1.3); Platelet Count 369 K/mcL (140-400); Red Blood Count 5.01 M/mcL (3.82-4.97); Red Cell Distribution Width 13.7 % (11.5-14.5); Segmented Neutrophils % 58.2 %
[2021-07-28 19:25] LABS: Bacteria,Urine Few per hpf (None-Few); Bilirubin,Urine Negative (Negative); Blood,Urine Negative (Negative); Clarity,Urine Clear (Clear); Color,Urine Light-Yellow (Yellow); Glucose,Urine (UA) Normal (Normal); Ketones,Urine Negative (Negative); Leukocyte Esterase,Urine Small (Negative); Mucus,Urine Few per lpf (None-Few); Nitrite,Urine Negative (Negative); PH,Urine 6.5 pH Units (5.0-8.0); Protein,Urine Negative (Neg-Trace); RBC,Urine 0-3 per hpf (0-3); Specific Gravity,Urine < 1.005 (1.010-1.025); Squamous Epithelial Cell,Urine Moderate per hpf (None-Few); Urobilinogen,Urine Normal (Normal)
[2021-07-28 19:43] LABS: Alanine Aminotransferase 12 Units/L (7-52); Albumin 4.4 g/dL (3.5-5.7); Albumin/Globulin Ratio 1.5 (1.1-2.2); Alkaline Phosphatase 75 Units/L (34-104); Amylase 55 Units/L (29-103); Aspartate Amino Transferase 19 Units/L (13-39); BUN/Creatinine Ratio 5 (6-26); Bilirubin,Indirect 0.3 mg/dL (0.0-1.0); Bilirubin,Total 0.3 mg/dL (0.3-1.0); Blood Urea Nitrogen 5 mg/dL (6-20); C-Reactive Protein < 5 mg/L (Less than 10); Calcium 9.2 mg/dL (8.6-10.3); Carbon Dioxide 23 mEq/L (23-29); Chloride 106 mEq/L (98-107); Glucose 84 mg/dL (70-105); Lipase 96 Units/L (11-82); Osmolality,Calculated 280 (280-300); Potassium 3.5 mEq/L (3.5-5.1); Sodium 137 mEq/L (136-145); Total Protein 7.4 g/dL (6.4-8.9); eGFR For African Americans > 60 (> 60); eGFR For Non-African Americans 60 (> 60)
[2021-07-28] MEDS ORDERED: 0.9 % Sodium Chloride 1,000 ML IV ONE (19:43)
[2021-07-28] MEDS ORDERED: Isovue-370 500 ML BOTTLE IVP ONE (19:43)
[2021-07-28] MEDS ORDERED: Ondansetron 4 MG/2 ML VIAL IVP PRN (22:33)
[2021-07-28] MEDS ORDERED: Acetaminophen 325 MG TABLET PO PRN (22:33)
[2021-07-28] MEDS ORDERED: Naloxone 0.4 MG/ML INJ IVP PRN (22:33)
[2021-07-28] MEDS: 0.9 % Sodium Chloride 1,000 ML IVC SCH (23:31)
[2021-07-28] MEDS: Mesalamine 250 MG CAPSULE.ER PO SCH (23:54)
[2021-07-29] MEDS ORDERED: ALPRAZolam 1 MG TABLET PO PRN (00:58)
[2021-07-29 01:37] LABS: Basophils # 0.1 K/mcL (0.0-0.2); Basophils % 0.9 %; Eosinophils # 0.1 K/mcL (0.0-0.6); Eosinophils % 1.3 %; Hematocrit 38.9 % (35.3-44.9); Immature Granulocytes % 0.2 % (0-4); Lymphocytes # 3.8 K/mcL (0.6-4.6); Lymphocytes % 36.1 %; Mean Corpuscular HGB Conc 33.2 g/dL (31.6-35.5); Mean Corpuscular Hemoglobin 29.6 pg (28.0-33.3); Mean Corpuscular Volume 89.2 fL (83.0-100.0); Mean Platelet Volume 9.9 fL (9.4-12.4); Monocytes # 0.9 K/mcL (0.0-1.3); Monocytes % 8.3 %; Neutrophils # 5.6 K/mcL (1.6-8.9); Platelet Count 354 K/mcL (140-400); Red Blood Count 4.36 M/mcL (3.82-4.97); Red Cell Distribution Width 13.6 % (11.5-14.5); Segmented Neutrophils % 53.2 %; White Blood Count 10.6 K/mcL (4.3-11.1)
[2021-07-29 01:52] LABS: INR 1.1; Prothrombin Time 11.8 Seconds (9.4-12.1)
[2021-07-29 01:56] LABS: BUN/Creatinine Ratio 5 (6-26); Blood Urea Nitrogen 4 mg/dL (6-20); Carbon Dioxide 19 mEq/L (23-29); Chloride 110 mEq/L (98-107); Glucose 95 mg/dL (70-105); Magnesium 1.8 mg/dL (1.6-2.6); Osmolality,Calculated 281 (280-300); Potassium 3.6 mEq/L (3.5-5.1); Sodium 137 mEq/L (136-145); eGFR For African Americans > 60 (> 60); eGFR For Non-African Americans > 60 (> 60)
[2021-07-29 02:29] LABS: Hemoglobin 12.9 g/dL (11.5-15.4)
[2021-07-29] MEDS: Thyroid (Amour) 30 MG TABLET PO SCH (05:04)
[2021-07-29] MEDS: Venlafaxine XR (24 HR) 75 MG CAP.ER.24H PO SCH (08:19)
[2021-07-29] MEDS: 0.9 % Sodium Chloride 1,000 ML IVC SCH (08:19)
[2021-07-29] MEDS: MetroNIDAZOLE 500 MG/100 ML 500 MG/100 ML BAG IVPB SCH ×2 (08:19→15:36)
[2021-07-29] MEDS: Pantoprazole 40 MG VIAL IVP SCH (08:19)
[2021-07-29] MEDS: Multivit/Ca/Min/Fe/FA 1 TAB TABLET PO SCH (08:19)
[2021-07-29] MEDS: Mesalamine 250 MG CAPSULE.ER PO SCH ×2 (08:20→20:29)
[2021-07-29] MEDS: Venlafaxine XR (24 HR) 37.5 MG CAP.ER.24H PO SCH (08:20)
[2021-07-29] MEDS ORDERED: THYROID PORK 15 MG PO SCH (09:00)
[2021-07-29] MEDS ORDERED: Loratadine 10 MG TABLET PO PRN (09:00)
[2021-07-29 11:13] LABS: Adenovirus F 40/41 PCR Not detected (Not detect); Astrovirus PCR Not detected (Not detect); C.difficile Toxin A/B Gene PCR Not detected (Not detect); Campylobacter by PCR Not detected (Not detect); Cryptosporidium by PCR Not detected (Not detect); Cyclospora cayetanensis PCR Not detected (Not detect); Entamoeba histolytica PCR Not detected (Not detect); Enteroaggregative E.coli(EAEC) Not detected (Not detect); Enteropathogenic E.coli(EPEC) Not detected (Not detect); Enterotoxigenic E.coli (ETEC) Not detected (Not detect); Giardia lamblia PCR Not detected (Not detect); Norovirus GI/GII PCR Not detected (Not detect); Plesiomonas shigelloides PCR Not detected (Not detect); Rotavirus A PCR Not detected (Not detect); Salmonella PCR Not detected (Not detect); Sapovirus PCR Not detected (Not detect); Shig/EnteroinvasiveE coli EIEC Not detected (Not detect); Shigalike tox-prod E coli STEC Not detected (Not detect); Vibrio PCR Not detected (Not detect); Vibrio cholerae PCR Not detected (Not detect); Yersinia enterocolitica PCR Not detected (Not detect)
[2021-07-30] MEDS: MetroNIDAZOLE 500 MG/100 ML 500 MG/100 ML BAG IVPB SCH ×2 (00:15→07:51)
[2021-07-30 02:23] LABS: Basophils # 0.1 K/mcL (0.0-0.2); Eosinophils # 0.1 K/mcL (0.0-0.6); Eosinophils % 1.3 %; Hematocrit 38.6 % (35.3-44.9); Hemoglobin 12.7 g/dL (11.5-15.4); Immature Granulocytes % 0.3 % (0-4); Lymphocytes % 34.5 %; Mean Corpuscular HGB Conc 32.9 g/dL (31.6-35.5); Mean Corpuscular Hemoglobin 29.5 pg (28.0-33.3); Mean Corpuscular Volume 89.6 fL (83.0-100.0); Mean Platelet Volume 10.3 fL (9.4-12.4); Monocytes # 0.8 K/mcL (0.0-1.3); Monocytes % 8.7 %; Neutrophils # 4.7 K/mcL (1.6-8.9); Platelet Count 361 K/mcL (140-400); Red Blood Count 4.31 M/mcL (3.82-4.97); Red Cell Distribution Width 13.7 % (11.5-14.5); Segmented Neutrophils % 54.2 %; White Blood Count 8.6 K/mcL (4.3-11.1)
[2021-07-30 02:47] LABS: Alanine Aminotransferase 10 Units/L (7-52); Albumin 3.5 g/dL (3.5-5.7); Albumin/Globulin Ratio 1.4 (1.1-2.2); Alkaline Phosphatase 51 Units/L (34-104); Aspartate Amino Transferase 20 Units/L (13-39); BUN/Creatinine Ratio 5 (6-26); Bilirubin,Total 0.4 mg/dL (0.3-1.0); Blood Urea Nitrogen 4 mg/dL (6-20); Calcium 8.2 mg/dL (8.6-10.3); Carbon Dioxide 21 mEq/L (23-29); Chloride 110 mEq/L (98-107); Globulin 2.5 g/dL (2.4-3.5); Glucose 84 mg/dL (70-105); Osmolality,Calculated 282 (280-300); Potassium 3.7 mEq/L (3.5-5.1); Sodium 138 mEq/L (136-145); eGFR For African Americans > 60 (> 60); eGFR For Non-African Americans > 60 (> 60)
[2021-07-30] MEDS: Thyroid (Amour) 30 MG TABLET PO SCH (06:16)
[2021-07-30] MEDS: Pantoprazole 40 MG VIAL IVP SCH (07:51)
[2021-07-30] MEDS: Venlafaxine XR (24 HR) 75 MG CAP.ER.24H PO SCH (07:51)
[2021-07-30] MEDS: Mesalamine 250 MG CAPSULE.ER PO SCH (07:51)
[2021-07-30] MEDS: Venlafaxine XR (24 HR) 37.5 MG CAP.ER.24H PO SCH (07:51)
[2021-07-30] MEDS: Multivit/Ca/Min/Fe/FA 1 TAB TABLET PO SCH (07:52)
[2021-07-30 11:09] VITALS: BP 142/79; PULSE 60; TEMP 97.9; O2SAT 98
== END 2021-07-30 11:56 | disposition home or self-care (01) ==
LOC: 3BNU 17:40 → EMEROOARM 17:40 → SUATTDRO 22:37 → 3BNU 23:32
PROVIDERS: ADMIT Internal Medicine; ATTEND Nurse Practitioner